=== PATIENT | female | born 1975 | race Two or more races ===

== ENCOUNTER 2017-10-11 23:32 | Emergency (ER) | payer BC ==
[~2017-10-11] VITALS: Ht 177.8 cm; Wt 97.5 kg
[2017-10-11 23:34] VITALS: BP 118/79
== END 2017-10-12 00:44 | disposition home or self-care (01) ==
LOC: ED 10-12 00:38
DX: G89.11 Acute pain due to trauma (principal); M25.562 Pain in left knee; M79.662 Pain in left lower leg; E11.9 Type 2 diabetes mellitus without complications
CPT/HCPCS: 99284

== ENCOUNTER 2018-02-06 08:27 | Emergency (ER) | payer OTHER ==
[~2018-02-06] VITALS: Ht 175.3 cm; Wt 99.0 kg
[~2018-02-06 08:27] MED LIST: METF500T27 PO
[2018-02-06] MEDS ORDERED: SODIUM CHLORIDE FLUSH 10ML SYR IVF ONE (09:30)
[2018-02-06 10:01] LABS: ALANINE AMINOTRANSFERASE 83 U/L (12-78); ALBUMIN 3.6 g/dL (3.4-5.0); ANION GAP 8 mmol/L (5-15); CHLORIDE 111 mmol/L (98-107); CREATININE 0.59 mg/dL (0.55-1.02)
[2018-02-06 10:06] LABS: ALKALINE PHOSPHATASE 64 U/L (45-117); BILIRUBIN,TOTAL 0.2 mg/dL (0.2-1.0); TOTAL PROTEIN 7.8 g/dL (6.4-8.2); TROPONIN I < 0.015 ng/mL (0.000-0.045)
[2018-02-06 10:36] LABS: MEAN CORPUSCULAR HGB CONC 30.9 g/dL (32.4-35.8); MEAN CORPUSCULAR VOLUME 64.6 fL (80-100); MEAN PLATELET VOLUME 7.9 fL (7.4-10.4); PLATELET COUNT 403 x10^3/uL (130-400); RED BLOOD COUNT 4.85 x10^6/uL (3.82-5.3); RED CELL DISTRIBUTION WIDTH 21.8 % (9.6-15.2)
[2018-02-06 10:44] LABS: BASOPHILS # (AUTO) 0.01 x10^3/uL (0-0.1); BASOPHILS % (AUTO) 0 % (0-1); EOSINOPHILS # (AUTO) 0.03 x10^3/uL (0-0.4); EOSINOPHILS % (AUTO) 0 % (1-7); LYMPHOCYTES # (AUTO) 1.53 x10^3/uL (1-3.4); LYMPHOCYTES % (AUTO) 13 % (22-44); MD MORPH REVIEW ONLY; MONOCYTES # (AUTO) 0.39 x10^3/uL (0.2-0.8); MONOCYTES % (AUTO) 3 % (2-9); NEUTROPHILS # (AUTO) 10.25 x10^3/uL (1.8-6.8); NEUTROPHILS % (AUTO) 84 % (42-75)
[2018-02-06 10:59] LABS: ANISOCYTOSIS 2+; HYPOCHROMIA 1+; OVALOCYTES 1+
[2018-02-06 11:04] LABS: <PLATELET ESTIMATE> INCREASED; <PLT MORPHOLOGY> NORMAL PLT MORPH
[2018-02-06] MEDS ORDERED: OMNIPAQUE 350 MG/ML, 100ML BOTTLE ONE (11:20)
[2018-02-06 12:11] VITALS: BP 106/61
== END 2018-02-06 12:13 | disposition home or self-care (01) ==
LOC: ED 10:20
DX: D64.9 Anemia, unspecified (principal); R06.00 Dyspnea, unspecified; R06.02 Shortness of breath; R07.89 Other chest pain; E11.9 Type 2 diabetes mellitus without complications
CPT/HCPCS: 36415; 71275; 80053; 84484; 84703; 85025; 93005; 93971; 99284; Q9967

== ENCOUNTER 2019-06-27 18:06 | Emergency (ER) | payer MEDICAID, OTHER ==
[~2019-06-27] VITALS: Ht 175.3 cm; Wt 108.3 kg
[2019-06-27] MEDS ORDERED: HYDROmorphone 2 MG/ML, 1ML IM PRN (19:30)
[2019-06-27] MEDS ORDERED: PROMETHAZINE 25 MG/ML, 1ML IM ONE (19:30)
[2019-06-27] MEDS ORDERED: SILVER SULF. CRM 1% , 25GM TP ONE (19:30)
[2019-06-27] MEDS ORDERED: PROMETHAZINE 25 MG/ML, 1ML ONE (19:50)
[2019-06-27] MEDS ORDERED: SILVER SULF. CRM 1% , 25GM ONE (19:51)
[2019-06-27] MEDS ORDERED: HYDROmorphone 1 MG/ML, 1ML INJ ONE (19:51)
[2019-06-27 21:03] VITALS: BP 112/74
== END 2019-06-27 21:05 | disposition home or self-care (01) ==
LOC: ED 20:00
DX: T22.211A Burn of second degree of right forearm, initial encounter (principal); T31.0 Burns involving less than 10% of body surface; E11.9 Type 2 diabetes mellitus without complications; X19.XXXA Contact with other heat and hot substances, initial encounter; Y93.89 Activity, other specified; Y92.89 Other specified places as the place of occurrence of the external cause; Y99.8 Other external cause status
CPT/HCPCS: 16020; 96372; 96374; 99284; J1170; J2550

== ENCOUNTER 2019-06-29 09:34 | Emergency (ER) | payer MEDICAID ==
[~2019-06-29] VITALS: Ht 175.3 cm; Wt 105.0 kg
[2019-06-29 09:41] VITALS: BP 138/70
[2019-06-29] MEDS ORDERED: [UNRECOGNIZED DRUG - OTHER] (09:46)
[2019-06-29] MEDS ORDERED: SILVER SULF. CRM 1% , 25GM ONE (10:00)
--- NOTE | 2019-06-29 10:06 | NUR ---
Patient/Caregiver given discharge instructions and they have confirmed that they understand the instructions. Patient ambulatory with steady gait. PT LEFT WITH ALL PERSONAL BELONGINGS.
--- NOTE | 2019-06-29 10:14 | NUR ---
PT REQUESTED SLING TO KEEP ARM ELEVATED WHEN SHE WAS WALKING AROUND SINCE HER ARM HURT WHEN IT WAS DOWN BY HER SIDE. YANELI MOTLEY OK'D APPLICATION OF SLING.
== END 2019-06-29 10:23 | disposition home or self-care (01) ==
LOC: ED 10:15
DX: T23.271D Burn of second degree of right wrist, subsequent encounter (principal); X10.0XXD Contact with hot drinks, subsequent encounter
CPT/HCPCS: 99282

== ENCOUNTER 2019-10-10 17:57 | Emergency (ER) | payer MEDICAID ==
[~2019-10-10] VITALS: Ht 175.3 cm; Wt 95.0 kg
[~2019-10-10 17:57] MED LIST changes: +[UNRECOGNIZED DRUG - OTHER]
--- NOTE | 2019-10-10 18:50 | NUR ---
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
[2019-10-10] MEDS ORDERED: ACETAMINOPHEN 325 MG TABLET PO ONE (19:30)
[2019-10-10] MEDS ORDERED: ACETAMINOPHEN 325 MG TABLET ONE (19:50)
--- NOTE | 2019-10-10 19:53 | NUR ---
BEAD PREPARER PER MAR.
[2019-10-10 20:07] LABS: ALANINE AMINOTRANSFERASE 39 U/L (12-78); ALBUMIN 3.7 g/dL (3.4-5.0); ANION GAP 7 mmol/L (5-15); CALCIUM 8.6 mg/dL (8.5-10.1); CHLORIDE 106 mmol/L (98-107)
[2019-10-10 20:09] LABS: ALKALINE PHOSPHATASE 56 U/L (45-117); BILIRUBIN,TOTAL 0.5 mg/dL (0.2-1.0)
--- NOTE | 2019-10-10 20:09 | NUR ---
REPORT GIVEN TO BRYNN SMART.
[2019-10-10 20:10] LABS: BASOPHILS # (AUTO) 0.02 x10^3/uL (0-0.1); BASOPHILS % (AUTO) 0 % (0-1); EOSINOPHILS # (AUTO) 0.04 x10^3/uL (0-0.4); EOSINOPHILS % (AUTO) 1 % (1-7); LYMPHOCYTES # (AUTO) 1.08 x10^3/uL (1-3.4); LYMPHOCYTES % (AUTO) 24 % (22-44); MEAN CORPUSCULAR VOLUME 60.1 fL (80-100); MEAN PLATELET VOLUME 8.2 fL (7.4-10.4); MONOCYTES # (AUTO) 0.48 x10^3/uL (0.2-0.8); MONOCYTES % (AUTO) 10 % (2-9); NEUTROPHILS # (AUTO) 2.97 x10^3/uL (1.8-6.8); NEUTROPHILS % (AUTO) 65 % (42-75); PLATELET COUNT 360 x10^3/uL (130-400); RED BLOOD COUNT 5.42 x10^6/uL (3.82-5.3); RED CELL DISTRIBUTION WIDTH 20.2 % (9.6-15.2)
--- NOTE | 2019-10-10 20:11 | NUR ---
REPORT OF PT FROM BERRY MARLEY AND ASSUMING CARE OF PT AT THIS TIME.
[2019-10-10 20:21] LABS: ANISOCYTOSIS 2+; HYPOCHROMIA 1+; MD MORPH REVIEW ONLY
[2019-10-10 20:22] LABS: <PLATELET ESTIMATE> ADEQUATE; <PLT MORPHOLOGY> NORMAL PLT MORPH; OVALOCYTES 1+
--- NOTE | 2019-10-10 20:42 | NUR ---
PT D/C WITH D/C SUMMARY AND SCRIPTS. ALL QUESTIONS ANSWERED. PT VSS AND UPDATED IN EMR PRIOR TO D/C. PT VERBALIZES UNDERSTANDING OF NEED TO SELF ISOLATE AND TO REMAIN OFF WORK UNTIL SYMPTOMS RESOLVE. PT QUESTIONS ANSWERED. PT AMBULATES TO D/C DESK WITH STEADY GAIT FOR D/C HOME WITH FRIEND. PT DENIES ANY OTHER NEEDS PERTAINING TO THIS VISIT.
[2019-10-10 20:44] VITALS: BP 105/65
== END 2019-10-10 21:01 | disposition home or self-care (01) ==
LOC: ED 20:57
DX: U07.1 COVID-19 (principal); R06.00 Dyspnea, unspecified; E11.65 Type 2 diabetes mellitus with hyperglycemia; R50.9 Fever, unspecified; R05 Cough; D53.9 Nutritional anemia, unspecified; R11.2 Nausea with vomiting, unspecified; M79.10 Myalgia, unspecified site; R94.31 Abnormal electrocardiogram [ECG] [EKG]
CPT/HCPCS: 36415; 71045; 80053; 83605; 85025; 87040; 87635; 93005; 99285